=== PATIENT | male | born 1980 | race Caucasian/White ===

== ENCOUNTER 2018-04-21 22:19 | Emergency (ER) | payer SELFPAY ==
--- NOTE | 2018-04-21 23:00 | ER Document Report ---
ED General - General Mode of Arrival: Medic Information source: Patient <CHER BUTTERFIELD - Last Filed: 04/21/18 23:01> <BLACKRENÉ Wills - Last Filed: 04/22/18 00:41> - General Chief Complaint: Leg Pain Stated Complaint: LEG CRAMPING Time Seen by Provider: 04/21/18 22:48 Notes: Patient is a 38 year old male with gout and acid reflux presents to the emergency department complaining of multiple symptoms including dizziness, cramping in BLE and back. Patient states he was recently released from retirement today after a 5 day visit and was walking from [facility] to [facility] when began to get severe cramps in his legs, thighs, feet and back and began to feel dizzy and off balanced. He states he proceeded to call EMS shortly after. He also reports poor fluid intake today. (CHER BUTTERFIELD) - Related Data Allergies/Adverse Reactions: Penicillins Allergy (Verified 04/21/18 22:23) Past Medical History - General Information source: Patient - Social History Smoking Status: Current Every Day Smoker Cigarette use (# per day): Yes - 1 PPD Chew tobacco use (# tins/day): No Smoking Education Provided: No Frequency of alcohol use: Heavy - 6-8 beers per day Family History: Reviewed & Not Pertinent Musculoskeletal Medical History: Reports Hx Gout - Currently in BL ankles and left knee <CHER BUTTERFIELD - Last Filed: 04/21/18 23:01> Review of Systems - Review of Systems Constitutional: No symptoms reported EENT: No symptoms reported Cardiovascular: See HPI, Dizziness Respiratory: No symptoms reported Gastrointestinal: No symptoms reported Genitourinary: No symptoms reported Male Genitourinary: No symptoms reported Musculoskeletal: See HPI Skin: No symptoms reported Hematologic/Lymphatic: No symptoms reported Neurological/Psychological: No symptoms reported <CHER BUTTERFIELD - Last Filed: 04/21/18 23:01> Physical Exam - General General appearance: Appears well, Alert In distress: None - HEENT Head: Normocephalic, Atraumatic Eyes: Normal Conjunctiva: Normal Extraocular movements intact: Yes Pupils: PERRL Mucous membranes: Normal Neck: Normal - Respiratory Respiratory status: No respiratory distress Chest status: Nontender Breath sounds: Normal Chest palpation: Normal - Cardiovascular Rhythm: Regular Heart sounds: Normal auscultation Murmur: No Friction rub: No Gallop: None auscultated - Abdominal Inspection: Normal Distension: No distension Bowel sounds: Normal Tenderness: Nontender Organomegaly: No organomegaly - Back Back: Normal - Extremities General upper extremity: Normal ROM General lower extremity: Normal ROM - Neurological Neuro grossly intact: Yes Cognition: Normal Orientation: AAOx4 [place] Coma Scale Eye Opening: Spontaneous [place] Coma Scale Verbal: Oriented [place] Coma Scale Motor: Obeys Commands Enrique Coma Scale Total: 15 Speech: Normal - Psychological Associated symptoms: Normal affect, Normal mood - Skin Skin Temperature: Warm Skin Moisture: Dry Skin Color: Normal <CHER BUTTERFIELD - Last Filed: 04/21/18 23:01> - Vital signs Vitals: Temp Pulse Resp BP Pulse Ox 98.8 F 81 20 122/80 99 04/21/18 22:27 04/21/18 22:27 04/21/18 22:27 04/21/18 22:27 04/21/18 22:27 Course - Laboratory Result Diagrams: 04/21/18 23:22 04/21/18 23:22 <RENÉ CLEANING - Last Filed: 04/22/18 00:41> - Vital Signs Vital signs: Temp Pulse Resp BP Pulse Ox 98.8 F 81 20 122/80 99 04/21/18 22:27 04/21/18 22:27 04/21/18 22:27 04/21/18 22:27 04/21/18 22:27 - Laboratory Laboratory results interpreted by me: 04/21/18 04/21/18 04/21/18 23:22 23:22 23:22 WBC 19.4 H MCV 101 H MCH 34.2 H Seg Neutrophils % 85.0 H Lymphocytes % 7.2 L Absolute Neutrophils 16.5 H Absolute Monocytes 1.5 H ALT 89 H Urine Ketones TRACE H Urine Urobilinogen 2.0 H Discharge <CHER BUTTERFIELD - Last Filed: 04/21/18 23:01> <RENÉ CLEANING - Last Filed: 04/22/18 00:41> - Discharge Clinical Impression: Muscle cramps, Dehydration Heat exhaustion Qualifiers: Encounter type: initial encounter Qualified Code(s): T67.5XXA - Heat exhaustion , unspecified, initial encounter Condition: Stable Disposition: HOME, SELF-CARE Additional Instructions: Dehydration Dehydration can result from vomiting or diarrhea, fever, or decreased intake of fluids. If severe, hospitalization and intravenous fluids may be required. Most cases are treated at home with fluids by mouth. For the next 24 hours, drink lots of clear fluids. In mild cases, this can be soda pop or sports drinks. For more severe dehydration, the doctor may recommend special fluids such as Pedialyte or Lytren. Try to get three liters ( 3 quarts) of fluid per day. If vomiting occurs, continue to drink the fluids frequently (every 15 to 20 minutes), but in small amounts (one or two ounces). Depending on the type of dehydration, the doctor may prescribe antinausea medicine or potassium replacements. Call the doctor or return for re-examination if you become progressively weak, vomit repeatedly, or have other new symptoms. Heat Exhaustion You have had an episode of heat exhaustion. The body overheats when sweating fails to keep the temperature down due to high humidity, exercise, or dehydration. Typical symptoms may include muscle cramps, dizziness, nausea, and even chilling. You should rest and drink plenty of fluids. Do not resume any activities until you feel fully back to normal. To prevent a recurrence, avoid working in the heat. Always drink plenty of fluids when the weather is hot, particularly if you will be exercising. Use extra caution when the humidity is high. If you feel symptoms of heat illness, douse yourself with cold water and rest in the shade. Call the doctor if you develop confusion, repeated vomiting, severe headache, severe muscle spasms, fever, chest pain or shortness of breath. Drink plenty of fluids. Get plenty of rest. Take Tylenol and ibuprofen for pain and cramps if needed. Follow-up with a local medical doctor if not improving. RETURN TO THE EMERGENCY ROOM IF ANY NEW OR WORSENING SYMPTOMS. Scribe Attestation: 04/21/18 23:37 I personally performed the services described in the documentation, reviewed and edited the documentation which was dictated to the scribe in my presence, and it accurately records my words and actions. (RENÉ CLEANING) Scribe Documentation - Scribe Written by Enzo:: Enzo Sierra, 04/21/2018 23:04 acting as scribe for :: Black <CHER BUTTERFIELD - Last Filed: 04/21/18 23:01>
[2018-04-21] MEDS: NORMAL SALINE 1000 ML 1,000 ML IV PRN ×2 (23:26→23:27)
[2018-04-22 00:17] LABS: ABSOLUTE LYMPHOCYTES (AUTO) 1.4 10^3/uL (0.5-4.7); ABSOLUTE MONOCYTES (AUTO) 1.5 10^3/uL (0.1-1.4); ABSOLUTE NEUT (AUTO) 16.5 10^3/uL (1.7-8.2); BASOPHILS % (AUTO) 0.2 % (0-2); HEMATOCRIT 48.6 % (37.9-51.0); HEMOGLOBIN 16.5 g/dL (13.5-17.0); LYMPHOCYTES % (AUTO) 7.2 % (13-45); MEAN CORPUSCULAR HEMOGLOBIN 34.2 pg (27.0-33.4); MEAN CORPUSCULAR VOLUME 101 fl (80-97); MONOCYTES % (AUTO) 7.6 % (3-13); PLATELET COUNT 316 10^3/uL (150-450); RED BLOOD COUNT 4.83 10^6/uL (4.35-5.55); RED CELL DISTRIBUTION WIDTH 12.7 % (11.5-14.0); TOTAL CELLS COUNTED % (AUTO) 100 %; WHITE BLOOD COUNT 19.4 10^3/uL (4.0-10.5)
[2018-04-22 00:21] LABS: APPEARANCE,URINE SLIGHTLY-CLOUDY; BILIRUBIN,URINE NEGATIVE (NEGATIVE); COLOR,URINE AMBER; GLUCOSE, URINE NEGATIVE (NEGATIVE); KETONES,URINE TRACE mg/dL (NEGATIVE); LEUKOCYTE ESTERASE,URINE NEGATIVE (NEGATIVE); NITRITE,URINE NEGATIVE (NEGATIVE); PROTEIN,URINE NEGATIVE (NEGATIVE); URINE SPECIFIC GRAVITY 1.023
[2018-04-22 00:30] LABS: ALANINE AMINOTRANSFERASE 89 U/L (21-72); ALBUMIN 4.7 g/dL (3.5-5.0); ALKALINE PHOSPHATASE 60 U/L (38-126); ANION GAP 16 (5-19); ASPARTATE AMINO TRANSFERASE 51 U/L (17-59); BILIRUBIN,DIRECT 0.3 mg/dL (0.0-0.4); BILIRUBIN,TOTAL 0.7 mg/dL (0.2-1.3); BLOOD UREA NITROGEN 14 mg/dL (7-20); CALCIUM 9.9 mg/dL (8.4-10.2); CARBON DIOXIDE 25 mmol/L (22-30); CHLORIDE 103 mmol/L (98-107); CREATINE KINASE 165 U/L (55-170); GLUCOSE 99 mg/dL (75-110); POTASSIUM 4.8 mmol/L (3.6-5.0); SODIUM 144.3 mmol/L (137-145); TOTAL PROTEIN 8.2 g/dL (6.3-8.2)
[2018-04-22 01:21] VITALS: BP 123/77
== END 2018-04-22 01:22 | disposition home or self-care (01) ==
LOC: ER 22:19
DX: R25.2 Cramp and spasm (principal); E86.0 Dehydration; T67.5XXA Heat exhaustion, unspecified, initial encounter; X30.XXXA Exposure to excessive natural heat, initial encounter; F17.210 Nicotine dependence, cigarettes, uncomplicated
CPT/HCPCS: 99284; 96360; 96361; 36415; 82550; 83735; 85025; 80053; 81001; J7030